=== PATIENT | male | born 1995 | race Caucasian/White ===

== ENCOUNTER 2017-06-26 02:25 | Emergency (ER) | payer OTHER ==
[2017-06-26 02:30] VITALS: BP 142/89
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
[2017-06-26] MEDS ORDERED: DIPHTH/TETANUS/ACEL. PERTUSSIS IM ONLY ONE (02:40)
[2017-06-26] MEDS ORDERED: APAP/HYDROCODONE 325/5 TAB PO ONE (03:05)
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
[2017-06-26] MEDS ORDERED: LOR5/325 PO (03:45)
[2017-06-26] MEDS ORDERED: ACET/HYDROC 5/325MG TH ER ONLY 2 TAB/BOTTLE PO ONE (03:45)
[2017-06-26] MEDS ORDERED: cefTRIAXone 1 GM VIAL IM ONE (03:45)
[2017-06-26] MEDS ORDERED: CEPH500C24 PO (03:45)
[2017-06-26] MEDS ORDERED: CEPHALEXIN 500 MG CAP TH 2 CAP/BOTTLE PO ONE (03:45)
[2017-06-26] MEDS ORDERED: LIDOCAINE 1% MDV 200 MG/20 ML INJ ONE (03:45)
== END 2017-06-26 04:24 | disposition home or self-care (01) ==
LOC: ER 02:28
DX: S51.011A Laceration without foreign body of right elbow, initial encounter (principal)
CPT/HCPCS: 12032; 73080; 90471; 90715; 96372; 99283; A4565; J0696; J2001